=== PATIENT | male | born 1990 | race Caucasian/White ===

== ENCOUNTER 2016-12-25 09:31 | Emergency (ER) | payer BC ==
[2016-12-25] MEDS ORDERED: Ibuprofen TAB* 600 MG PO ONE (10:00)
--- NOTE | 2016-12-25 10:34 | RAD ---
HISTORY: Trauma, low back pain COMPARISONS: None VIEWS: 5 , Frontal, lateral, coned-down lateral sacral, and bilateral oblique views of the lumbar spine. FINDINGS: ALIGNMENT: The alignment is normal. VERTEBRAL BODIES: The vertebral body heights are normal. The interpedicular distances are normal. Incidentally noted is a small dysraphic defect of L5. There is cortical irregularity of the S3 vertebral body anteriorly JOINTS: The facet joints are normal. INTERVERTEBRAL DISCS: The intervertebral disc heights are normal. SOFT TISSUE: Unremarkable. OTHER: The pelvis is unremarkable. The lung bases are clear. IMPRESSION: PROBABLE NONDISPLACED FRACTURE OF THE S3 VERTEBRAL BODY
--- NOTE | 2016-12-25 11:30 | RAD ---
Indication: Assess for S3 vertebral fracture. Fall. Comparison: Lumbar sacral spine radiographs of the same date. Technique: Noncontrast CT pelvis with multiplanar reformation including small [id number] bone algorithm images of the sacrum. Report: Unremarkable pelvic viscera. Negative for free pelvic fluid. Negative for superficial soft tissue or retroperitoneal hematoma within the [id number]. Mildly impacted fracture at the anterior superior endplate of the S3 vertebral body is most conspicuous on the sagittal reformatted series. The fracture does not appear to involve the posterior cortex of the S3 vertebral body or the posterior elements. Negative for periosseous hematoma. Preserved presacral fat space thickness. No additional fractures evident. The sacral ala are intact. Normal alignment at the sacroiliac joints. IMPRESSION: Minimally impacted fracture at the anterior superior endplate of the S3 vertebral body without involvement of the posterior cortex or posterior elements. Negative for significant associated periosseous hematoma.
[2016-12-25 12:02] VITALS: BP 154/87
--- NOTE | 2016-12-25 12:19 | UC ---
Nilsa Zepeda Alok, scribed for Vadim Azul MD on 12/25/16 at 1004 . Back Pain HPI - HPI Summary HPI Summary: 26M presents to the [facility] with low lumbar, upper sacral pain after tripping and falling backwards last night hitting the corner of a table. Pt states his pain is constant and registers at a 7/10 in severity. 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 Pt denies numbness/weakness/tingling in his lower extremities. Pt denies tenderness to palpation. Pt smokes tobacco. Pt notes allergy to Cefaclor. - History of Current Complaint Chief Complaint: UCBackPain Stated Complaint: TAILBONE INJURY Time Seen by Provider: 12/25/16 09:54 Hx Obtained From: Patient Onset/Duration: Lasting Hours, Still Present Timing: Constant Severity Initially: Moderate Severity Currently: Moderate Pain Intensity: 7 Pain Scale Used: 0-10 Numeric Back Pain: Is Discrete @ - low lumbar, upper sacral Alleviating: OTC Meds - Motrin Associated Signs And Symptoms: Negative: Weakness, Numbness, Tingling - Allergies/Home Medications Allergies/Adverse Reactions: Allergies Allergy/AdvReac Type Severity Reaction Status Date / Time Cefaclor [From [facility]] Allergy Rash Verified 12/25/16 09:36 Home Medications: Home Medications Ibuprofen [Ibuprofen 200 MG] 400 mg PO Q6H PRN 12/25/16 [History Confirmed 12/25] Naproxen 500 mg PO BID PRN 12/25/16 [History Confirmed 12/25/16] PMH/Surg Hx/FS Hx/Imm Hx Endocrine History Of: Denies: Diabetes Cardiovascular History Of: Denies: Hypertension Respiratory History Of: Denies: Asthma - Surgical History Surgical History: None - Family History Known Family History: Positive: Hypertension, Diabetes - Social History Occupation: Employed Full-time Alcohol Use: Occasionally Substance Use Type: None Smoking Status (MU): Light Every Day Tobacco Smoker Amount Used/How Often: 4-5/day Review of Systems Constitutional: Negative Musculoskeletal: Other: - low lumbar, upper sacral pain Neurological: Negative All Other Systems Reviewed And Are Negative: Yes Physical Exam Triage Information Reviewed: Yes Appearance: Well-Appearing, No Pain Distress, Well-Nourished Vital Signs: Initial Vital Signs Temp 98.2 F 05/26/17 09:38 Pulse 86 12/25/16 09:38 Resp 16 12/25/16 09:38 BP 145/99 12/25/16 09:38 Pulse Ox 100 12/25/16 09:38 Vital Signs Reviewed: Yes ENT: Positive: Normal ENT inspection Neck: Positive: Nontender Respiratory: Positive: Lungs clear, Normal breath sounds Cardiovascular: Positive: RRR, No Murmur Musculoskeletal: Positive: Strength Intact, ROM Intact, Other: - He has tenderness over the L5/S1 level. Neurological: Positive: Alert, Other: - CN 2-12 grossly intact, strength 5/5, sensory grossly intact, gait WNL Psychological: Positive: Age Appropriate Behavior Skin: Negative: rashes Diagnostics - Radiology Lumbar Spine XRAY Xray Interpretation: Positive (See Comments) - IMPRESSION: PROBABLE NONDISPLACED FRACTURE OF THE S3 VERTEBRAL BODY Radiology Interpretation Completed By: Radiologist Pelvic CT Xray Interpretation: Positive (See Comments) - IMPRESSION: Minimally impacted fracture at the anterior superior endplate of the S3 vertebral body without involvement of the posterior cortex or posterior elements. Negative for significant associated periosseous hematoma. Radiology Interpretation Completed By: Radiologist Back Pain Course/Dx - Course Course Of Treatment: I have discussed the case with Samia, the PA covering with Dr Vergara the Neurosurgeon recreation adviser at [facility] today. They have reviewed the CT scan and state that only pain management is in order. She states Dr Lawson says no further treatment is needed for the sacral fracture. She states Dr Lawson says he only needs to follow up with his primary doctor. - Differential Dx/Diagnosis Provider Diagnoses: S3 Vertebral Fracture. back pain - Physician Notifications Discussed Patient Care With: CEDRIC Gracia of Dr. Lawson (silvia) @ [phone] - discussed pt hx and CT results. Will contact Dr. Lawson and call back. Dr. Lawson (silvia) @ [phone] - recommend pain management and FU Discharge - Discharge Plan Condition: Good Disposition: HOME Prescriptions: HYDROcodone/ACETAMIN 5-325 MG* [[place] 5-325 TAB*] 1 tab PO Q6H PRN #20 tab MDD 4 PRN Reason: Pain Patient Education Materials: Vertebral Compression Fracture (ED) Forms: *Work Release Referrals: Jose Lawson MD [Medical Doctor] - No Primary Care Phys,NOPCP [Primary Care Provider] - Additional Instructions: [facility]: Satinder Serrano MD Family practice physician in [place], [place] Address: [address] [place] [address] [address], [place] [address] The documentation as recorded by the neoibNilsa winters Alok accurately reflects the service I personally performed and the decisions made by me, Vadim Azul MD.
== END 2016-12-25 12:11 | disposition home or self-care (01) ==
LOC: UCEAST 09:31
DX: S32.10XA Unspecified fracture of sacrum, initial encounter for closed fracture (principal); W01.190A Fall on same level from slipping, tripping and stumbling with subsequent striking against furniture, initial encounter; Y93.9 Activity, unspecified; Y92.9 Unspecified place or not applicable; M54.5 Low back pain; Z88.1 Allergy status to other antibiotic agents; F17.210 Nicotine dependence, cigarettes, uncomplicated
CPT/HCPCS: 72110; 72192; 99202; A9270-GY; G0463

== ENCOUNTER 2018-01-10 12:44 | Emergency (ER) | payer BC ==
[2018-01-10 13:29] LABS: ABS Basophils 0.1 10^3/ul (0-0.2); ABS Eosinophils 0.5 10^3/ul (0-0.6); ABS Lymphocytes 2.7 10^3/ul (1.0-4.8); ABS Monocytes 0.5 10^3/ul (0-0.8); ABS Neutrophils 3.3 10^3/ul (1.5-7.7); ABS Nucleated RBC 0 10^3/ul; Eosinophil % 7.1 % (0-6); Hematocrit 49 % (42-52); Hemoglobin 17.1 g/dl (14.0-18.0); Lymphocyte % 38.2 % (25-47); Mean Corpuscular HGB Conc 35 g/dl (31-36); Mean Corpuscular Hemoglobin 30 pg (27-31); Mean Corpuscular Volume 86 fL (80-94); Mean Platelet Volume 8.1 um3 (7.4-10.4); Nucleated Red Blood Cells % 0.1; Platelet Count 208 10^3/ul (150-450); Red Blood Count 5.68 10^6/ul (4.00-5.40); Red Cell Distribution Width 13 % (10.5-15)
[2018-01-10] MEDS ORDERED: Al Hydrox/Mg Hydrox/Simet LIQ* 30 ML UDC PO ONE (14:47)
[2018-01-10] MEDS ORDERED: Lidocaine 2% VISCOUS* 15 ML UDC PO ONE (14:47)
[2018-01-10] MEDS ORDERED: traMADol TAB* 50 MG PO ONE (14:51)
[2018-01-10 15:34] VITALS: BP 138/98
--- NOTE | 2018-01-10 18:49 | ED ---
Hunter Zepeda Angela, scribed for Herb Owens MD on 01/10/18 at 1446 . Abdominal Pain/Male - HPI Summary HPI Summary: This pt is a 27 y/o male presenting to [facility] c/o intermittent abd pain for the past few days, worse today. Pt reports his abd pain is diffuse. Today he was unable to walk up the stairs to class secondary to his pain. Pt additionally notes nausea and chronic constipation. He states his last bowel movement was this morning. Denies vomiting, testicular pain, penile discharge. Pt's pain is not aggravated or alleviated by eating. He notes usually his pain is aggravated by coffee or lactose. Pt has seen multiple providers for his chronic abd pain, including GI and pain management. PMHx includes IBS, abd visceral pain syndrome (diagnosed 3.5 months ago). He was on gabapentin prescribed by his PCP but he stopped using it approx 2 weeks ago because it caused him disorientation, dizziness and inability to focus. Pt is currently using Kratom for his pain for the past 2 weeks. He had an endoscopy and colonoscopy a couple of months ago in [place]. He has also had 2 CTs done. Pt is a current tobacco smoker. Denies drug or alcohol use. - History of Current Complaint Chief Complaint: EDAbdPain Stated Complaint: ABD PAIN Time Seen by Provider: 01/10/18 14:18 Hx Obtained From: Patient Onset/Duration: Lasting Days, Still Present Timing: Lasting Days Severity Currently: Severe Pain Intensity: 9 Pain Scale Used: 0-10 Numeric Location: Diffuse Radiates: No Aggravating Factor(s): Nothing Alleviating Factor(s): Nothing Associated Signs And Symptoms: Positive: Constipation, Nausea, Other - NEG: testicular pain. Negative: Fever, Chest Pain, Vomiting, Diarrhea, Penile Discharge - Allergies/Home Medications Allergies/Adverse Reactions: Allergies Allergy/AdvReac Type Severity Reaction Status Date / Time cefaclor [From [facility]] Allergy Rash Verified 01/10/18 12:52 PMH/Surg Hx/FS Hx/Imm Hx Endocrine/Hematology History: Denies: Hx Diabetes Cardiovascular History: Denies: Hx Hypertension Respiratory History: Denies: Hx Asthma GI History: Reports: Hx Irritable Bowel Infectious Disease History: No Infectious Disease History: Denies: Traveled Outside the [place] in Last 30 Days - Family History Known Family History: Positive: Hypertension, Diabetes - Social History Alcohol Use: Occasionally Substance Use Type: Reports: None Smoking Status (MU): Light Every Day Tobacco Smoker Amount Used/How Often: 4-5/day Review of Systems Negative: Fever, Chills Negative: Erythema Negative: Sore Throat Negative: Chest Pain Negative: Shortness Of Breath, Cough Gastrointestinal: Other - constipation Positive: Abdominal Pain, Nausea. Negative: Vomiting Negative: dysuria, discharge - penile, hematuria, pain - testicular Negative: Myalgia, Edema Negative: Rash Neurological: Other - NEG: dizziness All Other Systems Reviewed And Are Negative: Yes Physical Exam - Summary Physical Exam Summary: Constitutional: Well-developed, Well-nourished, Alert. (-) Distressed Skin: Warm, Dry HENT: Normocephalic; Atraumatic Eyes: Conjunctiva normal Neck: Musculoskeletal ROM normal neck. (-) JVD, (-) Stridor, (-) Tracheal deviation Cardio: Rhythm regular, rate normal, Heart sounds normal; Intact distal pulses; The pedal pulses are 2+ and symmetric. Radial pulses are 2+ and symmetric. (-) Murmur Pulmonary/Chest wall: Effort normal. (-) Respiratory distress, (-) Wheezes, (-) Rales Abd: Soft, (-) Tenderness, (-) Distension, (-) Guarding, (-) Rebound Musculoskeletal: (-) Edema Lymph: (-) Cervical adenopathy Neuro: Alert, Oriented x3 Psych: Mood and affect Normal Triage Information Reviewed: Yes Vital Signs On Initial Exam: Initial Vitals Temp Pulse Resp BP Pulse Ox 98.2 F 78 17 162/98 97 01/10/18 12:48 01/10/18 12:48 01/10/18 12:48 01/10/18 12:48 01/10/18 12:48 Vital Signs Reviewed: Yes Diagnostics - Vital Signs Vital Signs Temp Pulse Resp BP Pulse Ox 01/10/18 14:16 80 100 01/10/18 14:15 72 148/101 100 01/10/18 12:48 98.2 F 78 17 162/98 97 - Laboratory Lab Results: Lab Results 01/10/18 01/10/18 01/10/18 Range/Units 13:21 13:21 13:21 WBC 7.0 (3.5-10.8) 10^3/ul RBC 5.68 H (4.00-5.40) 10^6/ul Hgb 17.1 (14.0-18.0) g/dl Hct 49 (42-52) % MCV 86 (80-94) fL MCH 30 (27-31) pg MCHC 35 (31-36) g/dl RDW 13 (10.5-15) % Plt Count 208 (150-450) 10^3/ul MPV 8.1 (7.4-10.4) um3 Neut % (Auto) 47.2 (38-83) % Lymph % (Auto) 38.2 (25-47) % [place] % (Auto) 6.8 (0-7) % Eos % (Auto) 7.1 H (0-6) % Baso % (Auto) 0.7 (0-2) % Absolute Neuts (auto) 3.3 (1.5-7.7) 10^3/ul Absolute Lymphs (auto) 2.7 (1.0-4.8) 10^3/ul Absolute Monos (auto) 0.5 (0-0.8) 10^3/ul Absolute Eos (auto) 0.5 (0-0.6) 10^3/ul Absolute Basos (auto) 0.1 (0-0.2) 10^3/ul Absolute Nucleated RBC 0 10^3/ul Nucleated RBC % 0.1 Sodium 141 (139-145) mmol/L Potassium 3.7 (3.5-5.0) mmol/L Chloride 104 (101-111) mmol/L Carbon Dioxide 28 (22-32) mmol/L Anion Gap 9 (2-11) mmol/L BUN 11 (6-24) mg/dL Creatinine 1.01 (0.67-1.17) mg/dL Est GFR ( Amer) 115.8 (>60) Est GFR (Non-Af Amer) 90.0 (>60) BUN/Creatinine Ratio 10.9 (8-20) Glucose 88 (70-100) mg/dL Lactic Acid 1.4 (0.5-2.0) mmol/L Calcium 9.6 (8.6-10.3) mg/dL Total Bilirubin 0.60 (0.2-1.0) mg/dL AST 29 (13-39) U/L ALT 26 (7-52) U/L Alkaline Phosphatase 59 (34-104) U/L C-Reactive Protein 2.87 (< 5.00) mg/L Total Protein 7.8 (6.4-8.9) g/dL Albumin 4.7 (3.2-5.2) g/dL Globulin 3.1 (2-4) g/dL Albumin/Globulin Ratio 1.5 (1-3) Lipase 13 (11.0-82.0) U/L Result Diagrams: 01/10/18 13:21 01/10/18 13:21 Lab Statement: Any lab studies that have been ordered have been reviewed, and results considered in the medical decision making process. Abdominal Pain Fem Course/Dx - Course Assessment/Plan: Pt is a 27 y/o male who presents with intermittent abd pain for the past few days, worse today. Pt reports his abd pain is diffuse. Today he was unable to walk up the stairs to class secondary to his pain. Pt additionally notes nausea and chronic constipation. He states his last bowel movement was this morning. Denies vomiting, testicular pain, penile discharge. Pt's pain is not aggravated or alleviated by eating. Test results within normal limits. In the ED course the pt was given Maalox, Ultram, and lidocaine. 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 He was given a prescription for Protonix. Pt was given instructions to return to the ED for any worsening symptoms. - Diagnoses Provider Diagnoses: Chronic abdominal pain Discharge - Sign-Out/Discharge Documenting (check all that apply): Discharge/Admit/Transfer - Discharge - Discharge Plan Condition: Stable Disposition: HOME Prescriptions: Pantoprazole Sodium [Protonix] 20 mg PO DAILY #30 tablet. Patient Education Materials: Chronic Abdominal Pain (ED) Forms: *Work Release Referrals: [facility] [Outside] - 2 Days (in 2-3 days.) Baldemar Robin MD [Medical Doctor] - Additional Instructions: Establish a primary care provider through [facility] and follow up in 2-3 days. Follow up with Dr. Robin, watch band assembler. RETURN TO THE EMERGENCY DEPARTMENT FOR CHANGING OR WORSENING SYMPTOMS. The documentation as recorded by the Hunter lynne Angela accurately reflects the service I personally performed and the decisions made by me, Herb Owens MD.
== END 2018-01-10 15:35 | disposition home or self-care (01) ==
LOC: ED 12:44
DX: R10.9 Unspecified abdominal pain (principal); G89.29 Other chronic pain; R11.0 Nausea; K59.00 Constipation, unspecified; K58.9 Irritable bowel syndrome, unspecified; F17.200 Nicotine dependence, unspecified, uncomplicated; Z88.3 Allergy status to other anti-infective agents
CPT/HCPCS: 36415; 80053; 83605; 83690; 84702; 85025; 86140; 99283; A9270-GY